=== PATIENT | male | born 1975 | race Two or more races ===

== ENCOUNTER 2017-05-25 12:49 | Emergency (ER) | payer BC ==
[~2017-05-25] VITALS: Ht 177.8 cm; Wt 81.6 kg
[2017-05-25 12:49] VITALS: BP 128/86
[2017-05-25] MEDS ORDERED: ZOFRAN4 M3 ORAL (14:30)
[2017-05-25] MEDS ORDERED: TAMIFLU75 MG ORAL (14:30)
[2017-05-25 14:51] VITALS: BP 126/82
--- NOTE | 2017-05-25 21:31 | Emergency Room Report ---
History of Present Illness General Chief Complaint: Flu Like Symptoms Source: Patient, EMS Present Illness HPI The patient is a 41-year-old male presenting for myalgia, headache, fever, fatigue, and nausea. This has been ongoing for 3 days. He denies any known sick contacts or recent travel. He has been using Tylenol for pain and fever which temporarily helps. He has history of hypothyroidism which is being treated. He denies any other symptoms including SOB, CP Allergies: Coded Allergies: ASPIRIN (Verified Allergy, Unknown, 05/25/17) Patient History Past Medical History: see triage record Pertinent Family History: none Reviewed Nursing Documentation: PMH: Agreed, PSxH: Agreed Nursing Documentation-PMH Past Medical History: No History, Except For Hx Cardiac Problems: No - HYPOTHYROIDISIM Review of Systems All Other Systems: negative except mentioned in HPI Physical Exam Vital Signs Date Time Temp Pulse Resp B/P (MAP) Pulse Ox O2 Delivery O2 Flow Rate FiO2 05/25/17 12:44 98.8 92 20 128/86 97 Room Air Sp02 EP Interpretation: reviewed, normal General Appearance: no apparent distress, alert, GCS 15, non-toxic Head: normocephalic, atraumatic Eyes: bilateral eye normal inspection, bilateral eye PERRL ENT: hearing grossly normal, no angioedema, normal voice, nasal congestion, pharyngeal erythema Neck: full range of motion, supple/symm/no masses Respiratory: chest non-tender, lungs clear, normal breath sounds, no wheezing, speaking full sentences Cardiovascular #1: regular rate, rhythm, no edema Musculoskeletal: back normal, gait/station normal, normal range of motion, non- tender Neurologic: alert, oriented x3, responsive, motor strength/tone normal, sensory intact, speech normal Psychiatric: judgement/insight normal, memory normal, mood/affect normal, no suicidal/homicidal ideation Skin: normal color, no rash, warm/dry, well hydrated Lymphatic: no adenopathy Medical Decision Making PA Attestation Dr. Masters is my supervising physician. Patient management was discussed with my supervising physician Diagnostic Impression: Primary Impression: Influenza A ER Course The patient is a 41-year-old male presenting for myalgia, headache, fever, fatigue, and nausea. Differential diagnosis include but not limited to influenza, pharyngitis, sinusitis, AOM, bronchitis, PNA Physical exam: Patient is afebrile. Lethargic HEENT exam reveals pharyngeal erythema. No exudate. Nasal congestion Lungs are clear to auscultation bilaterally. No respiratory distress Skin warm and dry POSITIVE FOR INFLUENZA A. The patient will be treated for influenza with prescription for zofran, Tamiflu. he is given strict ER precautions. He will continue to use Tylenol for fever. he was told this is highly contagious. Microbiology Date/Time Source Procedure Growth Status 05/25/17 14:00 Nasal Nares Influenza Types A,B Antigen (JOSE) - Final Complete Lab Results Impression POSITIVE FOR INFLUENZA A. Last Vital Signs Date Time Temp Pulse Resp B/P (MAP) Pulse Ox O2 Delivery O2 Flow Rate FiO2 05/25/17 14:51 98.8 90 18 126/82 98 Room Air Status: improved Disposition: HOME, SELF-CARE Condition: Improved Scripts Ondansetron* (ZOFRAN*) 4 Mg Tablet 4 MG ORAL Q6H Y for Nausea & Vomiting, #10 TAB Prov: HELLEN CHILDS.Reginald. 05/25/17 Oseltamivir Phosphate (Tamiflu) 75 Mg Capsule 75 MG ORAL TWICE A DAY, #10 CAP Prov: HELLEN CHILDS P.A. 05/25/17 Referrals: NOT CHOSEN [facility]/MD,REFERRING (PCP) Patient Instructions: Influenza, Adult Additional Instructions: I discussed my findings with the patient. All questions and concerns have been answered. Treatment and medication compliance have been addressed. I advised the patient that they need to follow up with PMD in 3-5 days. Return to ED if symptoms worsen, new symptoms arise, or if needed for any reason. Patient verbalized understanding of discharge instructions. HELLEN CHILDS May 25, 2017 21:31
== END 2017-05-25 14:51 | disposition home or self-care (01) ==
LOC: EDBD 12:49 → EMR 13:21
DX: J10.1 Influenza due to other identified influenza virus with other respiratory manifestations (principal); E03.9 Hypothyroidism, unspecified; Z88.6 Allergy status to analgesic agent
CPT/HCPCS: 86710; 96361; 96374; 99284; J2405